=== PATIENT | female | born 1990 | race Hispanic/Latino ===

== ENCOUNTER 2018-12-13 13:49 | Emergency (ER) | payer BC, OTHER ==
[~2018-12-13 13:49] MED LIST: PREN1TAB26 PO
[2018-12-13] MEDS ORDERED: ONDANSETRON HCL 4 MG/2 ML VIAL ONE (14:40)
[2018-12-13] MEDS ORDERED: SODIUM CHLORIDE 0.9% 1000ML 1,000 ML IV ONE (14:45)
[2018-12-13 15:31] LABS: BASOPHILS % (AUTO) 0.7 % (0.0-5.0); EOSINOPHILS % (AUTO) 0.3 % (0.0-8.0); HEMATOCRIT 37.7 % (36-48); LYMPHOCYTES % (AUTO) 30.7 % (21.0-51.0); MEAN CORPUSCULAR HEMOGLOBIN 27.9 pg (27.0-33.0); MEAN CORPUSCULAR HGB CONC 33.3 g/dL (32.0-36.0); MEAN CORPUSCULAR VOLUME 83.9 fL (79-99); MONOCYTES % (AUTO) 8.3 % (3.0-13.0); NUCLEATED RED BLOOD CELLS 0.1 % (0.0-0.19); PLATELET COUNT (AUTO) 219 K/uL (130-400); RED BLOOD CELL COUNT(AUTO) 4.49 MIL/uL (4.00-5.50); RED CELL DISTRIBUTION WIDTH 13.2 % (11.0-15.5); WHITE BLOOD COUNT (AUTO) 9.5 K/uL (4.8-10.8)
[2018-12-13 15:39] LABS: CREATININE 0.7 mg/dL (0.5-1.5); POTASSIUM 3.7 mmol/L (3.5-5.1)
[2018-12-13 15:44] LABS: APPEARANCE,URINE Clear (CLEAR); BILIRUBIN,URINE Negative (NEGATIVE); COLOR,URINE Yellow (YELLOW); GLUCOSE, URINE (UA) Negative (NEGATIVE); KETONES,URINE Negative (NEGATIVE); LEUKOCYTE ESTERASE ,URINE Negative (NEGATIVE); NITRATE,URINE Negative (NEGATIVE); OCCULT BLOOD,URINE Negative (NEGATIVE); PROTEIN,URINE Negative (NEGATIVE); UROBILINOGEN,URINE 0.2 mg/dL (0.2-1.0)
[2018-12-13 15:49] LABS: ALBUMIN 3.8 g/dL (3.5-5.0); BILIRUBIN,TOTAL 0.3 mg/dL (0.2-1.0); TOTAL PROTEIN, SERUM 7.1 g/dL (6.0-8.3)
[2018-12-13] MEDS ORDERED: KETOROLAC TROMETHAMINE 15MG/ML ONE (16:15)
[2018-12-13] MEDS ORDERED: IOHEXOL-350 75 ML VIAL IV ONE (16:16)
== END 2018-12-13 17:43 | disposition home or self-care (01) ==
LOC: EDH 13:49
DX: R10.30 Lower abdominal pain, unspecified (principal); R11.2 Nausea with vomiting, unspecified
CPT/HCPCS: 36415; 74177; 76856; 80053; 81003; 83690; 84702; 85025; 96361; 96374; 99284; J1885; J2405; J7030; Q9967

== ENCOUNTER → 2020-12-10 | Outpatient (CLI) | payer OTHER | END | disposition home or self-care (01) | LOC: RAH 08:01 | PROVIDERS: ATTEND Internal Medicine | DX: R10.31 Right lower quadrant pain (principal) | CPT/HCPCS: 76700; 76856 ==